=== PATIENT | male | born 1980 | race American Indian/Alaskan Native ===

== ENCOUNTER 2018-12-27 02:40 | Emergency (ER) | payer SELFPAY ==
[2018-12-27 03:01] VITALS: BP 117/78
--- NOTE | 2018-12-27 04:06 | Emergency Department Report ---
- General Chief complaint: Allergic Reaction Stated complaint: ALLERGIC REACTION ON FACE Time Seen by Provider: 12/27/18 03:45 Source: patient Mode of arrival: Ambulatory Limitations: No Limitations - History of Present Illness Initial comments: Patient is a 38-year-old male presents to the emergency room with complaints of an allergic reaction that occurred earlier today. He states that he went to the [facility] today and had his carrillo dyed. He states afterwards he began experiencing a rash and had itching and irritation where the dye was present. He states he has washed out the carrillo after the irritation began. He has not taken anything for his symptoms. He states states he has had this dye before at the [facility] but is not sure if it was a new one. He denies any past medical history or allergies to medications. - Related Data Previous Rx's Medication Instructions Recorded Last Taken Type HYDROcodone/ACETAMINOPHEN [Zavalla 1 each PO Q6HR #20 tablet 11/08/14 Unknown Rx 7.5-325 mg TAB] Meloxicam [Mobic] 7.5 mg PO QDAY #30 tablet 11/08/14 Unknown Rx Potassium Chloride 20 meq PO DAILY #3 tablet.er 11/08/14 Unknown Rx amLODIPine [Norvasc] 5 mg PO DAILY #30 tab 11/08/14 Unknown Rx diphenhydrAMINE [Benadryl CAP] 25 mg PO Q6HR PRN #20 capsule 12/27/18 Unknown Rx predniSONE [Deltasone] 40 mg PO QDAY 7 Days #14 tab 12/27/18 Unknown Rx Allergies Allergy/AdvReac Type Severity Reaction Status Date / Time No Known Allergies Allergy Unverified 11/07/14 19:57 Abscess Boil HPI - HPI Chief Complaint: Allergic Reaction Stated Complaint: ALLERGIC REACTION ON FACE Time Seen by Provider: 12/27/18 03:45 Home Medications: Previous Rx's Medication Instructions Recorded Last Taken Type HYDROcodone/ACETAMINOPHEN [Zavalla 1 each PO Q6HR #20 tablet 11/08/14 Unknown Rx 7.5-325 mg TAB] Meloxicam [Mobic] 7.5 mg PO QDAY #30 tablet 11/08/14 Unknown Rx Potassium Chloride 20 meq PO DAILY #3 tablet.er 11/08/14 Unknown Rx amLODIPine [Norvasc] 5 mg PO DAILY #30 tab 11/08/14 Unknown Rx diphenhydrAMINE [Benadryl CAP] 25 mg PO Q6HR PRN #20 capsule 12/27/18 Unknown Rx predniSONE [Deltasone] 40 mg PO QDAY 7 Days #14 tab 12/27/18 Unknown Rx Allergies/Adverse Reactions: Allergies Allergy/AdvReac Type Severity Reaction Status Date / Time No Known Allergies Allergy Unverified 11/07/14 19:57 ED Review of Systems ROS: Stated complaint: ALLERGIC REACTION ON FACE Other details as noted in HPI Comment: All other systems reviewed and negative ED Past Medical Hx - Past Medical History Previous Medical History?: No - Surgical History Past Surgical History?: No - Social History Smoking Status: Never Smoker - Medications Home Medications: Home Medications Medication Instructions Recorded Confirmed Last Taken Type HYDROcodone/ACETAMINOPHEN [Zavalla 1 each PO Q6HR #20 tablet 11/08/14 Unknown Rx 7.5-325 mg TAB] Meloxicam [Mobic] 7.5 mg PO QDAY #30 tablet 11/08/14 Unknown Rx Potassium Chloride 20 meq PO DAILY #3 tablet.er 11/08/14 Unknown Rx amLODIPine [Norvasc] 5 mg PO DAILY #30 tab 11/08/14 Unknown Rx diphenhydrAMINE [Benadryl CAP] 25 mg PO Q6HR PRN #20 capsule 12/27/18 Unknown Rx predniSONE [Deltasone] 40 mg PO QDAY 7 Days #14 tab 12/27/18 Unknown Rx ED Physical Exam - General Limitations: No Limitations General appearance: alert, in no apparent distress - Head Head exam: Present: atraumatic, normocephalic - Eye Eye exam: Present: normal appearance - ENT ENT exam: Present: normal orophraynx, mucous membranes moist, other (no angioedema, no tongue edema, no uvular edema, uvula is midline ) - Respiratory Respiratory exam: Absent: respiratory distress, stridor - Neurological Exam Neurological exam: Present: alert, oriented X3 - Psychiatric Psychiatric exam: Present: normal affect, normal mood - Skin Skin exam: Present: warm, dry, other (erythema and small papules to the carrillo, no blistering, no scaling, no skin denuding ) ED Course Vital Signs 12/27/18 02:57 Temperature 98.4 F Pulse Rate 89 Respiratory 16 Rate Blood Pressure 117/78 O2 Sat by Pulse 95 Oximetry ED Medical Decision Making - Medical Decision Making Patient is a 38-year-old male presents to the emergency room with complaints of an allergic reaction that occurred earlier today. He states that he went to the [facility] today and had his carrillo dyed. He states afterwards he began experiencing a rash and had itching and irritation where the dye was present. He states he has washed out the carrillo after the irritation began. He has not taken anything for his symptoms. He states states he has had this dye before at the [facility] but is not sure if it was a new one. He denies any past medical history or allergies to medications. vitals are normal. on exam: no angioedema, no tongue edema, no uvular edema, uvula is midline, erythema and small papules to the carrillo, no blistering, no scaling, no skin denuding. examination consistent with irritant dermatitis. pt given prescription for benadryl and steroids. advised to please take medication as prescribed. Continue washing the carrillo dye out. Avoid scratching the carrillo. Follow up with a primary care doctor in the next 3 days for reevaluation. Return to the emergency room for any new or worsening symptoms. - Differential Diagnosis irritant derm, contact derm, allergic reaction, impetigo, urticaria Critical care attestation.: If time is entered above; I have spent that time in minutes in the direct care of this critically ill patient, excluding procedure time. ED Disposition Clinical Impression: Irritant dermatitis Disposition: DC-01 TO HOME OR SELFCARE Is pt being admited?: No Does the pt Need Aspirin: No Condition: Stable Instructions: Contact Dermatitis (ED) Additional Instructions: please take medication as prescribed. Continue washing the carrillo dye out. Avoid scratching the carrillo. Follow up with a primary care doctor in the next 3 days for reevaluation. Return to the emergency room for any new or worsening symptoms. Prescriptions: diphenhydrAMINE [Benadryl CAP] 25 mg PO Q6HR PRN #20 capsule PRN Reason: Itching predniSONE [Deltasone] 40 mg PO QDAY 7 Days #14 tab Referrals: PEPE ALICEA MD [Primary Care Provider] - 2-3 Days Time of Disposition: 04:06 Print Language: KHMER
== END 2018-12-27 04:21 | disposition home or self-care (01) ==
LOC: ED 02:40
DX: L24.9 Irritant contact dermatitis, unspecified cause (principal)